=== PATIENT | male | born 1950 | race Caucasian/White ===

== ENCOUNTER → 2017-12-02 | Outpatient (CLI) | payer MEDICARE, OTHER ==
[2017-12-02 11:27] LABS: Blood Urea Nitrogen 13 mg/dL (9-20)
--- NOTE | 2017-12-02 14:00 | CT ---
EXAMINATION TYPE: CT chest w con DATE OF EXAM: 12/02/2017 COMPARISON: Unavailable HISTORY: Patient has no complaints at time of study. Follow up study to abnormal cxr. COPD. CT DLP: 175.2 mGycm Automated exposure control for dose reduction was used. CONTRAST: CT scan of the chest is performed with IV Contrast, patient injected with 100 mL of Omnipaque 300. FINDINGS: LUNGS: The lungs are grossly clear, there is no concerning parenchymal mass or nodule identified. E mphysematous changes are present there is a 3 mm subpleural nodule in the right upper lobe on axial i mage 29 anteriorly. In the upper lobes. There is no pleural effusion or pneumothorax seen. The trach eobronchial tree is patent. MEDIASTINUM: There are no greater than 1 cm hilar or mediastinal lymph nodes. Coronary artery calcifi cation is present. No pericardial effusion is seen. AORTA: No additional significant abnormality is seen. Circumaortic left renal vein is present. OTHER: Cystic focus present in the right lobe of the liver laterally at the level of the diaphragm m easures 17 mm, there are smaller cystic foci scattered within the right lobe. Cortical cyst noted in the upper pole the right kidney measures only approximately 1 cm IMPRESSION: Emphysema. Indeterminate right upper lobe lung nodule, follow-up in 6-12 months. Coronar y artery disease. Probable cysts within the liver and right kidney. Additional findings above
== END | disposition home or self-care (01) ==
LOC: RADCTMAIN 10:49
PROVIDERS: ATTEND Family Medicine
DX: J43.9 Emphysema, unspecified (principal); I25.10 Atherosclerotic heart disease of native coronary artery without angina pectoris; I21.02 ST elevation (STEMI) myocardial infarction involving left anterior descending coronary artery
CPT/HCPCS: 82565; 84520; 71260; Q9967

== ENCOUNTER → 2018-06-02 | Outpatient (CLI) | payer MEDICARE, OTHER ==
[2018-06-02 15:13] LABS: Blood Urea Nitrogen 17 mg/dL (9-20)
--- NOTE | 2018-06-02 16:21 | CT ---
EXAMINATION TYPE: CT chest w con DATE OF EXAM: 06/02/2018 COMPARISON: Previous study dated 12/02/2017. HISTORY: Solitary pulmonary nodule. CT DLP: 414 mGycm Automated exposure control for dose reduction was used. CONTRAST: CT scan of the chest is performed with IV Contrast, patient injected with 100 mL of Isovue M300. FINDINGS: There are emphysematous changes throughout the lungs. There is a 3 mm noncalcified nodule i n the anterior segment of the right upper lobe, best seen on image 25. This is unchanged from previou s. No definite new nodules are seen. There is no significant axillary, mediastinal or hilar adenopathy. There is no pleural or pericardial fluid. The heart is not enlarged. There are multiple simple appearing cysts throughout the liver, unchanged from previous. There is a s lightly irregular 1 cm cyst involving the upper pole of the right kidney. The remainder of the upper abdomen is unremarkable. There is hypertrophic spondylosis within the spine. IMPRESSION: 1. STABLE, SOLITARY PULMONARY NODULE IN THE RIGHT UPPER LOBE. 2. CYSTIC CHANGE IN THE LIVER AND RIGHT KIDNEY. 3. EMPHYSEMATOUS CHANGE. 4. DEGENERATIVE CHANGE WITHIN THE SPINE.
== END | disposition home or self-care (01) ==
LOC: RADCTMAIN 14:41
PROVIDERS: ATTEND Internal Medicine Critical Care Medicine
DX: J43.9 Emphysema, unspecified (principal); R91.1 Solitary pulmonary nodule
CPT/HCPCS: 82565; 84520; 71260; 36415; Q9967

== ENCOUNTER → 2019-02-23 | Outpatient (CLI) | payer MEDICARE ==
[2019-02-23 14:11] LABS: Blood Urea Nitrogen 15 mg/dL (9-20)
--- NOTE | 2019-02-23 16:19 | CT ---
EXAMINATION TYPE: CT chest w con DATE OF EXAM: 02/23/2019 COMPARISON: 06/02/2018 HISTORY: Solitary pulmonary nodule. CT DLP: 411 mGycm, Automated exposure control for dose reduction was used. CONTRAST: Performed injected with 100 mL of Isovue M300. TECHNIQUE: Axial images were obtained at 5 mm thick sections. Reconstructed images are reviewed on [employer] computer in the coronal plane. FINDINGS: Portion of the thyroid visualized is normal. No suspicious lung nodules or focal infiltrates are present. Some mild emphysematous changes present. There is a punctate calcific density measuring 0.2 cm in the right middle lobe. Series 4 image 29. Th is is likely a small granuloma. Lung windows otherwise appear clear. No enlarged mediastinal or hilar adenopathy is evident. The ascending aorta diameter at the level o f the main pulmonary artery is 3.4 cm. The main pulmonary artery diameter at the bifurcation is 2.0 cm. Mild coronary artery calcification is present. Limited CT sections are obtained through the upper abdomen. There are scattered small rounded hypoden sities within the liver likely on the basis of hepatic cysts. IMPRESSIONS: 1. Stable granuloma right middle lobe. Follow-up exam in 6 months is recommended. This has been prese nt since December 02, 2017. Confirmation of stability over the course of 2 years is recommended. 2. Hepatic cysts. 3. Mild emphysematous changes
== END | disposition home or self-care (01) ==
LOC: RADCTMAIN 13:34
PROVIDERS: ATTEND Internal Medicine Critical Care Medicine
DX: J84.10 Pulmonary fibrosis, unspecified (principal); J43.9 Emphysema, unspecified
CPT/HCPCS: 82565; 84520; 71260; 36415; Q9967

== ENCOUNTER → 2019-10-09 | Outpatient (CLI) | payer MEDICARE ==
[2019-10-09 11:47] LABS: African American GFR (CKD) >90 (>60 ml/min/1.73 sqM); Blood Urea Nitrogen 21 mg/dL (9-20)
--- NOTE | 2019-10-09 12:28 | CT ---
EXAMINATION TYPE: CT chest w con DATE OF EXAM: 10/09/2019 COMPARISON: 02/23/2019 HISTORY: Follow up nodule CT DLP: 181.5 mGycm Automated exposure control for dose reduction was used. CONTRAST: CT scan of the chest is performed with IV Contrast, patient injected with 100 mL of Isovue 300. FINDINGS: LUNGS: The lungs are grossly clear, there is no concerning parenchymal mass or nodule identified. Sta ble calcified granuloma right middle lobe. Mild upper lobe emphysematous changes noted. There is no p leural effusion or pneumothorax seen. The tracheobronchial tree is patent. MEDIASTINUM: There are no greater than 1 cm hilar or mediastinal lymph nodes. No pericardial effusi on is seen. Thoracic aorta is of normal caliber. The heart is not enlarged. UPPER ABDOMEN: Hepatic cysts are stable. OTHER: No additional significant abnormality is seen. IMPRESSION: 1 stable calcified granuloma right middle lobe. 2. Mild emphysematous changes. 3. Stable hepatic cysts.
== END | disposition home or self-care (01) ==
LOC: RADCTMAIN 11:03
PROVIDERS: ATTEND Internal Medicine Critical Care Medicine
DX: J43.9 Emphysema, unspecified (principal); J98.4 Other disorders of lung; R91.8 Other nonspecific abnormal finding of lung field
CPT/HCPCS: 82565; 84520; 71260; 36415; Q9967

== ENCOUNTER → 2021-07-10 | Outpatient (CLI) | payer MEDICARE ==
--- NOTE | 2021-07-10 12:23 | XR ---
EXAMINATION TYPE: XR foot complete RT DATE OF EXAM: 07/10/2021 CLINICAL HISTORY: Pain and bruising laterally after fall injury last week TECHNIQUE: Frontal, lateral, and oblique images of the right foot are obtained. COMPARISON: None FINDINGS: There is no acute fracture/dislocation evident in the right foot with particular attention to lateral aspect. Advanced narrowing with joint space sclerosis first metatarsophalangeal joint wit h some marginal spurring is noted. The Tobar's toe is present. Some flexion in the toes is seen. Th e overlying soft tissue appears unremarkable. IMPRESSION: There is no acute fracture or dislocation in the right foot.
== END | disposition home or self-care (01) ==
LOC: RADXRYALE 12:03
PROVIDERS: ATTEND Physician Assistant
DX: M79.671 Pain in right foot (principal)

== ENCOUNTER → 2022-02-12 | Outpatient (CLI) | payer MEDICARE ==
--- NOTE | 2022-02-13 04:47 | MR ---
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 There is spurring at the AC joint and subacromial impingement on the supraspinatus tendon and muscle. There is nodular decreased signal in the proximal humeral metaphysis consistent with an old bone inf arct. There is some mild thickening of the supraspinatus tendon. No evidence of full-thickness tear. No retraction. The infraspinatus tendon is intact. Subscapularis tendon is intact. There is fluid kai und the biceps tendon. Biceps tendon is intact. No evidence of a fracture. No evidence of a soft tiss ue mass. IMPRESSION: Spurring at the AC joint and mild subacromial impingement. Minimal thickening of the supraspinatus te ndon consistent with mild tendinitis. No full-thickness tear. Evidence of a 3 cm infarct in the proximal humeral metaphysis.
== END | disposition home or self-care (01) ==
LOC: RADMRIMAIN 07:10
PROVIDERS: ATTEND Physician Assistant
DX: M62.2 Nontraumatic ischemic infarction of muscle (principal); M77.8 Other enthesopathies, not elsewhere classified

== ENCOUNTER 2022-03-26 14:02 | Emergency (ER) | payer MEDICARE ==
[2022-03-26 14:08] VITALS: BP 151/72; PULSE 68; RESP 20; TEMP 98.4
[2022-03-26] MEDS ORDERED: BEBTELOVIMAB (EUA) 175 MG/2 ML VIAL IV ONE (18:15)
--- NOTE | 2022-03-26 18:44 | ED ---
URI HPI - General Chief Complaint: Upper Respiratory Infection Stated Complaint: Covid Time Seen by Provider: 03/26/22 14:15 Source: patient Mode of arrival: ambulatory Limitations: no limitations - History of Present Illness Initial Comments: 71-year-old male with past medical history of coronary artery disease presents to the emergency room with Covid symptoms. He 2 days ago he began having a scratchy throat, fever and mild nonproductive cough. did a test at home and it was positive for Covid. Patient presents today stating that most of his symptoms have resolved however he was pressured by his to come in. He denies any chest pain or shortness of breath. No current fevers. No nausea or vomiting. 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 ROS Other: All systems not noted in ROS Statement are negative. Past Medical History Past Medical History: Coronary Artery Disease (CAD) History of Any Multi-Drug Resistant Organisms: None Reported Additional Past Surgical History / Comment(s): Stents x3 Past Psychological History: No Psychological Hx Reported Smoking Status: Current every day smoker Past Alcohol Use History: Occasional Past Drug Use History: None Reported General Exam Limitations: no limitations General appearance: alert, in no apparent distress Head exam: Present: atraumatic, normocephalic, normal inspection Eye exam: Present: normal appearance, PERRL, EOMI. Absent: scleral icterus, conjunctival injection, periorbital swelling ENT exam: Present: normal exam, mucous membranes moist Neck exam: Present: normal inspection. Absent: tenderness, meningismus, ly mphadenopathy Respiratory exam: Present: normal lung sounds bilaterally. Absent: respiratory distress, wheezes, rales, rhonchi, stridor Cardiovascular Exam: Present: regular rate, normal rhythm, normal heart sounds. Absent: systolic murmur, diastolic murmur, rubs, gallop, clicks GI/Abdominal exam: Present: soft, normal bowel sounds. Absent: distended, tenderness, guarding, rebound, rigid Extremities exam: Present: normal inspection, full ROM, normal capillary refill. Absent: tenderness, pedal edema, joint swelling, calf tenderness Back exam: Present: normal inspection Neurological exam: Present: alert, oriented X3, CN II-XII intact Psychiatric exam: Present: normal affect, normal mood Skin exam: Present: warm, dry, intact, normal color. Absent: rash Course Vital Signs 03/26/22 14:05 Temperature 98.4 F Pulse Rate 68 Respiratory 20 Rate Blood Pressure 151/72 O2 Sat by Pulse 100 Oximetry Medical Decision Making - Medical Decision Making On arrival patient is placed into a hallway 10. Thorough exam is performed. Patient does qualify for antibodies and therefore he does receive infusion. Patient will be discharged home and instructed to follow-up with his primary care doctor. Return for any new or worsening symptoms. - Lab Data Lab Results 03/26/22 Range/Units 14:11 Coronavirus (PCR) Detected A (Not Detectd) Disposition Clinical Impression: COVID-19, Cough Disposition: HOME SELF-CARE Condition: Stable Instructions (If sedation given, give patient instructions): COVID-19 (Cor onavirus Disease 2019) (ED) Additional Instructions: Please follow up with your PCP in 2-4 days. Return to the ED for any new or worsening symptoms. you received antibody infusion today. Is patient prescribed a controlled substance at d/c from ED?: No Referrals: Sonny Lo DO [Primary Care Provider] - 1-2 days Time of Disposition: 18:44
== END 2022-03-26 19:24 | disposition home or self-care (01) ==
LOC: EC 14:02
DX: U07.1 COVID-19 (principal); F17.200 Nicotine dependence, unspecified, uncomplicated
CPT/HCPCS: 87635; 99284; Q0222

== ENCOUNTER 2023-07-05 04:08 | Observation (INO) | payer MEDICARE ==
[2023-07-05] MEDS ORDERED: MORPHINE SULFATE 4 MG/ML SYRINGE IV STA (04:46)
[2023-07-05 05:29] LABS: Basophils % (A) 1 %; Eosinophils # (A) 0.2 k/uL (0-0.7); Eosinophils % (A) 3 %; HCT 40.4 % (39.0-53.0); HGB 13.5 gm/dL (13.0-17.5); Lymphocytes # (A) 1.8 k/uL (1.0-4.8); Lymphocytes % (A) 28 %; MCH 32.4 pg (25.0-35.0); MCHC 33.4 g/dL (31.0-37.0); MCV 97.2 fL (80.0-100.0); Mean Platelet Volume 8.1; Monocytes # (A) 0.3 k/uL (0-1.0); Monocytes % (A) 5 %; Neutrophils % (A) 62 %; Platelet Count 192 k/uL (150-450); RBC 4.16 m/uL (4.30-5.90); WBC 6.4 k/uL (3.8-10.6)
[2023-07-05 05:56] LABS: ALT 18 U/L (4-49); AST 30 U/L (17-59); African American GFR (CKD) >90 (>60 ml/min/1.73 sqM); Albumin 4.6 g/dL (3.5-5.0); Alkaline Phosphatase 55 U/L (38-126); Anion Gap 11 mmol/L; Blood Urea Nitrogen 17 mg/dL (9-20); C Reactive Protein <0.5 mg/dL (<1.0); Calcium 9.2 mg/dL (8.4-10.2); Carbon Dioxide 18 mmol/L (22-30); Chloride 105 mmol/L (98-107); Glucose 91 mg/dL (74-99); Non-African American GFR(CKD) 84 (>60 ml/min/1.73 sqM); Potassium 4.6 mmol/L (3.5-5.1); Sodium 134 mmol/L (137-145); Total Bilirubin 0.7 mg/dL (0.2-1.3); Total Protein 7.3 g/dL (6.3-8.2)
--- NOTE | 2023-07-05 06:51 | CT ---
EXAMINATION TYPE: CT brain wo con CT DLP: 1144.4 mGycm, Automated exposure control for dose reduction was used. DATE OF EXAM: 07/05/2023 6:00 AM COMPARISON: None. CLINICAL INDICATION:Male, 72 years old with history of WHOL, TECHNIQUE: Brain: Multiple axial CT images of the brain were obtained without IV contrast. Coronal and sagittal reformats reviewed. FINDINGS: Brain: Extra-axial spaces: No abnormal extra-axial fluid collections. Ventricular system: Within normal limits Cerebral parenchyma: No acute intraparenchymal hemorrhage or mass effect. The renteria-white junction is well differentiated. Scattered hypoattenuating areas are seen within the white matter. Cerebellum: Unremarkable. Mass effect: No evidence of midline shift. Intracranial vasculature: Atherosclerotic calcifications of the intracranial vessels. Soft tissues: Normal. Calvarium/osseous structures: No depressed skull fracture. Paranasal sinuses and mastoid air cells: Mild scattered paranasal sinus disease. Visualized orbits: Hyperdense material identified within the posterior aspect of the left globe with a V-shaped hypodense region. IMPRESSION: 1. No acute intracranial process. 2. Hyperdense material within the posterior aspect of the left globe suspicious for retinal detachmen t/hemorrhage. Ophthalmology consult is recommended. 3. Nonspecific white matter changes, likely secondary to chronic small vessel ischemic disease.
[2023-07-05] MEDS ORDERED: methylPREDNISolone SOD SUCCI 125 MG/2 ML VIAL IV STA ×2 (07:09→09:11)
[2023-07-05] MEDS ORDERED: HYDROmorphone 1 MG/ML 1 ML SYRINGE IVP STA (07:09)
[2023-07-05 07:17] LABS: Erythrocyte Sedimentation Rate 6 mm/hr (0-15)
[2023-07-05] MEDS ORDERED: NALOXONE 0.4 MG/ML 1 ML VIAL IV PRN (07:29)
[2023-07-05] MEDS ORDERED: HYDROmorphone 1 MG/ML 1 ML SYRINGE IVP PRN (07:29)
--- NOTE | 2023-07-05 07:40 | ED ---
Headache HPI - General Chief Complaint: Headache Stated Complaint: Left eye Pain, Head pain Time Seen by Provider: 07/05/23 04:36 Mode of arrival: wheelchair Limitations: no limitations - History of Present Illness Initial Comments: This patient is a 72-year-old man who presents to have evaluation for severe left temporal headache. The patient states this is come on over the past few hours. He has noted that the pain is worse if he is upright, it is better if he puts his head down between his knees. Patient states that it also feels tender when he touches the left side of his head at the adventist. He has had this pain on number of times over the past few months but it has been mild. He has not noted fever or chills. No cough or congestion. No neck stiffness. No ne urologic symptoms. 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 MD Complaint: headache -: hour(s) Onset Description: sudden Location: left, temporal Severity: severe Quality: aching, throbbing Consistency: constant Improves With: other (head down position) Worsens With: other (Sitting upright) Context: occurred at rest Treatments Prior to Arrival: none - Related Data Home Medications Medication Instructions Recorded Confirmed Aspirin EC [Ecotrin Low Dose] 81 mg PO DAILY 07/05/23 07/05/23 Atorvastatin [Lipitor] 40 mg PO HS 07/05/23 07/05/23 Metoprolol Tartrate [Lopressor] 25 mg PO BID 07/05/23 07/05/23 Ubidecarenone [Co Q-10] 300 mg PO DAILY 07/05/23 07/05/23 lisinopriL [Zestril] 5 mg PO DAILY 07/05/23 07/05/23 Previous Rx's Medication Instructions Recorded HYDROcodone/APAP 5-325MG [[place] 1 tab PO Q4HR PRN 3 Days #18 tab 07/05/23 5-325] Allergies Allergy/AdvReac Type Severity Reaction Status Date / Time No Known Allergies Allergy Verified 07/05/23 09:06 Review of Systems ROS Statement: Those systems with pertinent positive or pertinent negative responses have been documented in the HPI. ROS Other: All systems not noted in ROS Statement are negative. Constitutional: Denies: fever, chills, weakness Eyes: Denies: vision change ENT: Denies: ear pain, throat pain, hearing loss, congestion Respiratory: Denies: cough, dyspnea Cardiovascular: Denies: chest pain, syncope Gastrointestinal: Denies: abdominal pain, nausea, vomiting Genitourinary: Denies: dysuria, hematuria Musculoskeletal: Denies: back pain Skin: Denies: rash Neurological: Reports: as per HPI, headache. Denies: weakness, numbness, paresthesias, confusion, vertigo Past Medical History Past Medical History: Coronary Artery Disease (CAD) History of Any Multi-Drug Resistant Organisms: None Reported Additional Past Surgical History / Comment(s): Stents x3 Past Psychological History: No Psychological Hx Reported Smoking Status: Current every day smoker Past Alcohol Use History: Daily Past Drug Use History: None Reported General Exam Limitations: no limitations General appearance: alert, in distress Head exam: Present: atraumatic, normocephalic Eye exam: Present: EOMI, conjunctival injection. Absent: PERRL, scleral icterus, nystagmus, periorbital swelling, periorbital tenderness ENT exam: Present: normal oropharynx, TM's normal bilaterally Neck exam: Present: normal inspection, full ROM. Absent: tenderness, meningismus Respiratory exam: Present: normal lung sounds bilaterally. Absent: respiratory distress, wheezes, rales, rhonchi, stridor Cardiovascular Exam: Present: regular rate, normal rhythm, normal heart sounds. Absent: systolic murmur, diastolic murmur, rubs, gallop Neurological exam: Present: alert, oriented X3, CN II-XII intact. Absent: motor sensory deficit Skin exam: Present: warm, dry, intact, normal color. Absent: rash Course Vital Signs 07/05/23 07/05/23 07/05/23 04:12 08:00 10:15 Temperature 97.7 F 97 F L Pulse Rate 72 72 67 Respiratory 18 16 16 Rate Blood Pressure 161/81 137/74 146/49 O2 Sat by Pulse 98 97 99 Oximetry 07/05/23 07/05/23 13:55 14:12 Temperature 98.1 F Pulse Rate 68 68 Respiratory 16 16 Rate Blood Pressure 138/64 136/76 O2 Sat by Pulse 98 97 Oximetry Medical Decision Making - Lab Data Result diagrams: 07/05/23 05:07 07/05/23 05:07 Lab Results 07/05/23 07/05/23 Range/Units 05:07 05:07 WBC 6.4 (3.8-10.6) k/uL RBC 4.16 L (4.30-5.90) m/uL Hgb 13.5 (13.0-17.5) gm/dL Hct 40.4 (39.0-53.0) % MCV 97.2 (80.0-100.0) fL MCH 32.4 (25.0-35.0) pg MCHC 33.4 (31.0-37.0) g/dL RDW 12.0 (11.5-15.5) % Plt Count 192 (150-450) k/uL MPV 8.1 Neutrophils % 62 % Lymphocytes % 28 % Monocytes % 5 % Eosinophils % 3 % Basophils % 1 % Neutrophils # 4.0 (1.3-7.7) k/uL Lymphocytes # 1.8 (1.0-4.8) k/uL Monocytes # 0.3 (0-1.0) k/uL Eosinophils # 0.2 (0-0.7) k/uL Basophils # 0.0 (0-0.2) k/uL ESR 6 (0-15) mm/hr Sodium 134 L (137-145) mmol/L Potassium 4.6 (3.5-5.1) mmol/L Chloride 105 (98-107) mmol/L Carbon Dioxide 18 L (22-30) mmol/L Anion Gap 11 mmol/L BUN 17 (9-20) mg/dL Creatinine 0.90 (0.66-1.25) mg/dL Est GFR (CKD-EPI)AfAm >90 (>60 ml/min/1.73 sqM) Est GFR (CKD-EPI)NonAf 84 (>60 ml/min/1.73 sqM) Glucose 91 (74-99) mg/dL Calcium 9.2 (8.4-10.2) mg/dL Total Bilirubin 0.7 (0.2-1.3) mg/dL AST 30 (17-59) U/L ALT 18 (4-49) U/L Alkaline Phosphatase 55 (38-126) U/L C-Reactive Protein <0.5 (<1.0) mg/dL Total Protein 7.3 (6.3-8.2) g/dL Albumin 4.6 (3.5-5.0) g/dL Disposition Clinical Impression: Headache Disposition: ADMITTED IP TO THIS HOSP Condition: Good
[2023-07-05] MEDS ORDERED: SODIUM CHLORIDE 0.9% 500 ML 500 ML IV STA (08:04)
[2023-07-05] MEDS ORDERED: SODIUM CHLORIDE 0.9% 1,000 ML IV STA (08:04)
[2023-07-05 08:11] VITALS: RESP 16
--- NOTE | 2023-07-05 09:47 | P.HPIM ---
History of Present Illness H&P Date: 07/05/23 Chief Complaint: temporal headache 72 year old man with history of retinal detachment of left eye, CAD, HTN, HLD presented for evaluation of headache. Pt says that 5 days ago he started to experience significant left temporal headache. Sharp in nature. Also feels it behind his left eye. He has had associated nausea. Palliative factor is placing his head between his knees. He describes some photophobia as well. Denies fevers, chills, vomiting, chest pain, palpitations, syncope, prescyncope, cough, dyspnea, abdominal pain, constipation, diarrhea, dysuria, dyschezia, numbness/weakness of extremities. In the ER, patient is afebrile, 137/74, HR 72, 97% on room air. CBC is unremarkable. BMP shows acidosis to 18, Na of 134. LFTs are unremarkable. ESR is 6, CRP is < 0.5. Brain CT shows hyperdense material within the posterior aspect of the left globe suspicious for retinal detachment/hemorrhage. Case was discussed with ER provider and decision was made to admit the patient to the hospital for suspicion of temporal arteritis. All Systems reviewed and pertinent positives and negatives noted in HPI, all other symptoms are negative Gen: in no apparent distress, resting comfortably in bed Eyes: PERRL, no scleral injection or icterus HENT: normocephalic, atraumatic, good hearing acuity, moist mucous membranes Neck: no tracheal deviation, full range of motion Resp: good air exchange, breathing comfortably with no accessory muscle use, no tactile fremitus CVS: good distal perfusion x 4, no pitting edema GI: soft, NTTP, ND, no hepatosplenomegaly : no suprapubic tenderness, no CVAT, leigh catheter not present MSK: no clubbing, no cyanosis, no noted contractures of extremities Skin: no noted rashes, petechiae; temperature of skin is appropriate Neuro: moving all extremities without signs of weakness, CN II-XII intact Psych: cooperative, euthymic mood, insight and judgment intact Labs and imaging as above Assessment: Left-sided temporal headache CAD Hypertension Hyperlipidemia History of retinal detachment of left eye Plan: Vital signs, labs, imaging reviewed as in the HPI Case discussed with the emergency room and decision was made to admit the patient to the hospital for suspicion of temporal arteritis Vascular surgery consult Neurology consult Start Solu-Medrol 1000 g daily IV MRI of the brain/orbit Pain control: Dilaudid 1 mg every 3 hours when necessary Bowel regimen: Senokot-S 1 tablet twice a day Patient is full code Past Medical History Past Medical History: Coronary Artery Disease (CAD) History of Any Multi-Drug Resistant Organisms: None Reported Additional Past Surgical History / Comment(s): Stents x3 Past Psychological History: No Psychological Hx Reported Smoking Status: Current every day smoker Past Alcohol Use History: Daily Past Drug Use History: None Reported Medications and Allergies Home Medications Medication Instructions Recorded Confirmed Type Aspirin EC [Ecotrin Low Dose] 81 mg PO DAILY 07/05/23 07/05/23 History Atorvastatin [Lipitor] 40 mg PO HS 07/05/23 07/05/23 History Metoprolol Tartrate [Lopressor] 25 mg PO BID 07/05/23 07/05/23 History Ubidecarenone [Co Q-10] 300 mg PO DAILY 07/05/23 07/05/23 History lisinopriL [Zestril] 5 mg PO DAILY 07/05/23 07/05/23 History Allergies Allergy/AdvReac Type Severity Reaction Status Date / Time No Known Allergies Allergy Verified 07/05/23 09:06 Physical Exam Osteopathic Statement: *. No significant issues noted on an osteopathic structural exam other than those noted in the History and Physical/Consult. Vitals: Vital Signs Temp Pulse Resp BP Pulse Ox 07/05/23 08:00 97 F L 72 16 137/74 97 07/05/23 04:12 97.7 F 72 18 161/81 98 Intake and Output 07/04/23 07/05/23 07/05/23 22:59 06:59 14:59 Other: Weight 68.039 kg Results CBC & Chem 7: 07/05/23 05:07 07/05/23 05:07 Labs: Abnormal Lab Results - Last 24 Hours (Table) 07/05/23 07/05/23 Range/Units 05:07 05:07 RBC 4.16 L (4.30-5.90) m/uL Sodium 134 L (137-145) mmol/L Carbon Dioxide 18 L (22-30) mmol/L
[2023-07-05] MEDS ORDERED: SODIUM CHLORIDE 0.9% IVPB ONE (10:00)
[2023-07-05] MEDS ORDERED: METHYLPREDNISOLONE SOD SUCCIN IVPB ONE (10:00)
--- NOTE | 2023-07-05 12:14 | P.GSCN ---
History of Present Illness Consult date: 07/05/23 Reason for Consult: Possible temporal arteritis Requesting physician: Devon David History of present illness: This is a 72-year-old male with a past medical history including coronary artery disease, retinal detachment of the left eye, daily smoker and history of daily alcohol use who presented to emergency department with complaints of left-sided temporal headache. States onset was acute started yesterday. Only relief he gets us if HIS head down. No visual changes. She does report nausea but no vomiting associated with it. Denies any history of previous migraines, does state he has a history of headaches in the same area however never this bad. He had a CT of the brain that reported no acute intracranial process. Hyperdense material within the posterior aspect of the left globe suspicious for retinal detachment/hemorrhage. Ophthalmology consult recommended. Nonspecific white matter changes, likely secondary to chronic small vessel ischemic disease. Vascular surgery was consulted for possible temporal arteritis. Patient had sed rate and CRP which were both normal. Neurology also on consult. Patient states her headache continues its a 10/10, nauseated but no vomiting. Describes headac he in the left frontal/temporal region. Denies any focal deficits. Review of Systems A 14 point review systems was completed all pertinent positives and negatives as stated in the HPI. Past Medical History Past Medical History: Coronary Artery Disease (CAD) History of Any Multi-Drug Resistant Organisms: None Reported Additional Past Surgical History / Comment(s): Stents x3 Past Psychological History: No Psychological Hx Reported Smoking Status: Current every day smoker Past Alcohol Use History: Daily Past Drug Use History: None Reported Medications and Allergies Home Medications Medication Instructions Recorded Confirmed Type Aspirin EC [Ecotrin Low Dose] 81 mg PO DAILY 07/05/23 07/05/23 History Atorvastatin [Lipitor] 40 mg PO HS 07/05/23 07/05/23 History Metoprolol Tartrate [Lopressor] 25 mg PO BID 07/05/23 07/05/23 History Ubidecarenone [Co Q-10] 300 mg PO DAILY 07/05/23 07/05/23 History lisinopriL [Zestril] 5 mg PO DAILY 07/05/23 07/05/23 History Allergies Allergy/AdvReac Type Severity Reaction Status Date / Time No Known Allergies Allergy Verified 07/05/23 09:06 Surgical - Exam Vital Signs Temp Pulse Resp BP Pulse Ox 97.7 F 72 18 161/81 98 07/05/23 04:12 07/05/23 04:12 07/05/23 04:12 07/05/23 04:12 07/05/23 04:12 General appearance: The patient is alert, oriented, appears in no acute distress. HET: Head is normocephalic and atraumatic. Nontender to palpation. Neck: Supple. Heart: Regular. Lungs: Equal expansion, normal respiratory effort. Abdomen: Soft, nondistended. Extremities: Normal skin color and turgor. Neurological: No focal deficits. Strength and sensation are grossly intact. Results - Labs 07/05/23 05:07 07/05/23 05:07 Abnormal Lab Results - Last 24 Hours (Table) 07/05/23 07/05/23 Range/Units 05:07 05:07 RBC 4.16 L (4.30-5.90) m/uL Sodium 134 L (137-145) mmol/L Carbon Dioxide 18 L (22-30) mmol/L Diabetes panel 07/05/23 Range/Units 05:07 Sodium 134 L (137-145) mmol/L Potassium 4.6 (3.5-5.1) mmol/L Chloride 105 (98-107) mmol/L Carbon Dioxide 18 L (22-30) mmol/L BUN 17 (9-20) mg/dL Creatinine 0.90 (0.66-1.25) mg/dL Glucose 91 (74-99) mg/dL Calcium 9.2 (8.4-10.2) mg/dL AST 30 (17-59) U/L ALT 18 (4-49) U/L Alkaline Phosphatase 55 (38-126) U/L Total Protein 7.3 (6.3-8.2) g/dL Albumin 4.6 (3.5-5.0) g/dL Calcium panel 07/05/23 Range/Units 05:07 Calcium 9.2 (8.4-10.2) mg/dL Albumin 4.6 (3.5-5.0) g/dL Pituitary panel 07/05/23 Range/Units 05:07 Sodium 134 L (137-145) mmol/L Potassium 4.6 (3.5-5.1) mmol/L Chloride 105 (98-107) mmol/L Carbon Dioxide 18 L (22-30) mmol/L BUN 17 (9-20) mg/dL Creatinine 0.90 (0.66-1.25) mg/dL Glucose 91 (74-99) mg/dL Calcium 9.2 (8.4-10.2) mg/dL Adrenal panel 07/05/23 Range/Units 05:07 Sodium 134 L (137-145) mmol/L Potassium 4.6 (3.5-5.1) mmol/L Chloride 105 (98-107) mmol/L Carbon Dioxide 18 L (22-30) mmol/L BUN 17 (9-20) mg/dL Creatinine 0.90 (0.66-1.25) mg/dL Glucose 91 (74-99) mg/dL Calcium 9.2 (8.4-10.2) mg/dL Total Bilirubin 0.7 (0.2-1.3) mg/dL AST 30 (17-59) U/L ALT 18 (4-49) U/L Alkaline Phosphatase 55 (38-126) U/L Total Protein 7.3 (6.3-8.2) g/dL Albumin 4.6 (3.5-5.0) g/dL Assessment and Plan Assessment: 1. Headache Plan: Patient with normal sed rate and CRP. No plans at this time for any surgical intervention. Await recommendations from neurology. Thank you for this consultation, we will continue to follow. The impression and plan of care has been dictated as directed. Dr. Melendez I performed a history and examination of this patient, discussed the same with the dictator. I agree with the dictator's note ,documented as a scribe. Any additional findings or plans will be noted.
--- NOTE | 2023-07-05 13:38 | P.CNNES ---
History of Present Illness Consult date: 07/05/23 Requesting physician: Devon Daivd Reason for Consult: possible temporal arteritis History of Present Illness: This is a 72-year-old gentleman with history of left eye issues and he had surgery in 2009 but has been legally blind since 2010 presents to our facility because of severe headache kind the left eye for the past 4 days. Some of the history was limited because of the patient's severe pain while getting the h istory from him. Patient states that for the past 4 days has been having severe headache left retro-orbital and states it's intermittent and it's 10 over 10 and but could not describe the headache for me but he's been having nauseous. He states that he has been having this issue on and off for years but got worse in the last 4 days. He denies any the head trauma, any trauma to the eye. He feel s the headache is improved with the putting his head down between his knees. Denies any new visual disturbance over the right eye, any jaw pain upon swallowing, any the swallowing difficulty. He denies of any focal weakness or numbness. He feels he is having generalized weakness. Patient denies of any recent fevers at. He states he does drink a significant alcohol on a daily basis and last drink was yesterday. Initially in the ED there is a concern of left temporal arteritis. Some of the workup during his hospital visit consisted of: Temperature is 97.7 ESR 6. White blood cells 6.4 thousand. Chemistry panel is covered axis XVIII and the sodium is 134 otherwise rest is unremarkable. CRP is less than 0.5 CT of the head is reported as no acute intracranial process. Hyperdense mate rial within the posterior aspect of the left globe suspicious for retinal detachment/hemorrhage. Ophthalmology consult is recommended. Nonspecific white matter changes, likely secondary due to chronic small vessel ischemic disease. I personally reviewed the CT am concerned that the patient possibly has hemorrhage in the retinal over the left eye Review of Systems Review of systems Limited but the pertinent positive and negative as per HPI Past Medical History Past Medical History: Coronary Artery Disease (CAD) History of Any Multi-Drug Resistant Organisms: None Reported Additional Past Surgical History / Comment(s): Stents x3 Past Psychological History: No Psychological Hx Reported Smoking Status: Current every day smoker Past Alcohol Use History: Daily Past Drug Use History: None Reported Medications and Allergies Home Medications Medication Instructions Recorded Confirmed Type Aspirin EC [Ecotrin Low Dose] 81 mg PO DAILY 07/05/23 07/05/23 History Atorvastatin [Lipitor] 40 mg PO HS 07/05/23 07/05/23 History HYDROcodone/APAP 5-325MG [Dyess 1 tab PO Q4HR PRN 3 Days #18 tab 07/05/23 Rx 5-325] Metoprolol Tartrate [Lopressor] 25 mg PO BID 07/05/23 07/05/23 History Ubidecarenone [Co Q-10] 300 mg PO DAILY 07/05/23 07/05/23 History lisinopriL [Zestril] 5 mg PO DAILY 07/05/23 07/05/23 History Allergies Allergy/AdvReac Type Severity Reaction Status Date / Time No Known Allergies Allergy Verified 07/05/23 09:06 Physical Examination - Vital Signs Vital Signs: Vital Signs Temp Pulse Resp BP Pulse Ox 07/05/23 10:15 67 16 146/49 99 07/05/23 08:00 97 F L 72 16 137/74 97 07/05/23 04:12 97.7 F 72 18 161/81 98 Intake and Output 07/04/23 07/05/23 07/05/23 22:59 06:59 14:59 Other: Weight 68.039 kg GENERAL: The patient is sitting in a chair and is in severe pain. NEUROLOGICAL: Limited because of his cooperation and in in severe pain. Higher mental function: The patient is awake, alert, oriented to self, place and time. Patient is following simple commands. No aphasia and no neglect. Cranial nerves: The right pupil is 3mm and reactive to light. Left eye is opacified and is erythematous. Visual field are full to confrontation. Left is legally blind (old). EOM is hard to assess because of his cooperation over the right eye. Facial sensation is normal to touch throughout. The facial strength is normal throughout. Tongue is midline and moved [id number] without any difficulty. No dysarthria is noted. Shoulder shrug is normal bilaterally. Motor: The strength is 5 over 5 throughout. Normal tone and bulk. Cerebellum: Normal finger to nose bilaterally. But has underlying tremor with rest and movement. Sensation: Sensation is normal to touch throughout. Reflexes (right/left): Unable to assess because of cooperation. Results - Laboratory Findings CBC and BMP: 07/05/23 05:07 07/05/23 05:07 Abnormal Lab Findings: Abnormal Labs 07/05/23 07/05/23 05:07 05:07 RBC 4.16 L Sodium 134 L Carbon Dioxide 18 L Assessment and Plan Assessment: As is a 72-year-old gentleman with history of left eye issues and had surgery and is legally blind since 2009, coronary artery disease status post stent, significant alcohol use who comes in because of significant left retro-orbital pain for the last 4 days but states he's been having for years intermittently but got worse over the last 4 years with nausea. ESR and CRP is normal. Denies of any the jaw pain or any new visual disturbance. CT of the head there is a concern of left retinal detachment versus hemorrhage Left-sided cephalgia due to concern of left retro-orbital bleeding. Unlikely temporal arteritis the ESR CRP is normal and patient denies of any new visual disturbance or jaw pain Legally blind over the left eye since 2009 Significant alcohol use Plan: I spoke with the primary team and I notified them that I recommend a stat ophthalmology consultation. MRI of the brain and orbit is ordered by the primary team and pending I ordered TSH level Vascular surgery team is consulted for possible temporal arteritis again I highly doubt it. Started the patient on thiamine 100mg daily. I recommend CIWA protocol since he has significant alcohol use and having tremor possibly concern for withdrawal. Will defer management to primary team. Will defer rest of management to primary team. The plan is discussed with patient, primary attending and his nurse. Thank you for the consultation. Time with Patient: Greater than 30
[2023-07-05] MEDS ORDERED: THIAMINE 100 MG TAB PO SCH (13:45)
[2023-07-05 13:56] VITALS: PULSE 68
[2023-07-05 14:13] VITALS: BP 136/76; TEMP 98.1
--- NOTE | 2023-07-05 14:29 | P.DS ---
Providers Date of admission: 07/05/23 07:30 Expected date of discharge: 07/05/23 Attending physician: Danny Covington MD Consults: 07/05/23 07:29 Consult Physician Routine Consulting Provider: Mervin Ledezma Consult Reason/Comments: acute headache Do you want consulting provider notified?: Yes Consult Physician Routine Consulting Provider: Lorrie Melendez Consult Reason/Comments: possible temporal arteritis Do you want consulting provider notified?: Yes 07/05/23 13:17 Consult Physician Stat Consulting Provider: Vicky Tejada Consult Reason/Comments: retinal hemorrhage Do you want consulting provider notified?: Yes Primary care physician: [facility] Course: Assessment: Left-sided temporal headache CAD Hypertension Hyperlipidemia History of retinal detachment of left eye Hospital Course: 72 year old man with history of retinal detachment of left eye, CAD, HTN, HLD presented for evaluation of headache. In the ER, patient is afebrile, 137/74, H R 72, 97% on room air. CBC is unremarkable. BMP shows acidosis to 18, Na of 134. LFTs are unremarkable. ESR is 6, CRP is < 0.5. Brain CT shows hyperdense material within the posterior aspect of the left globe suspicious for retinal detachment/hemorrhage. Case was discussed with ER provider and decision was made to admit the patient to the hospital for suspicion of temporal arteritis. Patient was treated with IV pain medication as well as given 1000 mg of sodium Medrol. The case was subsequently discussed with neurology and ophthalmology. Ophthalmology recommended that the patient be discharged and sent immediately to the clinic for evaluation. I gave the patient a referral to [facility], as well as a prescription for pain medication to his pharmacy. Patient will be seen in the clinic today for evaluation of eye pain. See same-day history and physical for physical exam Patient Condition at Discharge: Good Plan - Discharge Summary New Discharge Prescriptions: New HYDROcodone/APAP 5-325MG [Dickinson 5-325] 1 tab PO Q4HR PRN 3 Days #18 tab PRN Reason: Pain Continue Metoprolol Tartrate [Lopressor] 25 mg PO BID Atorvastatin [Lipitor] 40 mg PO HS Ubidecarenone [Co Q-10] 300 mg PO DAILY lisinopriL [Zestril] 5 mg PO DAILY Aspirin EC [Ecotrin Low Dose] 81 mg PO DAILY Discharge Medication List Aspirin EC [Ecotrin Low Dose] 81 mg PO DAILY 07/05/23 [History] Atorvastatin [Lipitor] 40 mg PO HS 07/05/23 [History] HYDROcodone/APAP 5-325MG [Dickinson 5-325] 1 tab PO Q4HR PRN 3 Days #18 tab 07/05/23 [Rx] Metoprolol Tartrate [Lopressor] 25 mg PO BID 07/05/23 [History] Ubidecarenone [Co Q-10] 300 mg PO DAILY 07/05/23 [History] lisinopriL [Zestril] 5 mg PO DAILY 07/05/23 [History] Follow up Appointment(s)/Referral(s): Vicky Tejada MD [STAFF PHYSICIAN] - 1-2 Days (Go immediately to [facility]) Sonny Lo DO [Primary Care Provider] - 1-2 days Patient Instructions/Handouts: Acute Headache (ED) Discharge Disposition: HOME SELF-CARE
[2023-07-05] MEDS ORDERED: METOPROLOL TARTRATE 25 MG TAB PO SCH (21:00)
[2023-07-05] MEDS ORDERED: SENNOSIDES-DOCUSATE SODIUM 1 EACH TAB PO SCH (21:00)
[2023-07-05] MEDS ORDERED: ATORVASTATIN 40 MG TAB PO SCH (21:00)
[2023-07-06] MEDS ORDERED: ASPIRIN 81 MG PO SCH (09:00)
[2023-07-06] MEDS ORDERED: methylPREDNISolone SOD SUCCIN 1,000 MG in SODIUM CHLORIDE 0.9% 250 ML IVPB SCH (09:00)
[2023-07-06] MEDS ORDERED: lisinopriL 5 MG TAB PO SCH (09:00)
[2023-07-06] MEDS ORDERED: NON FORMULARY DRUG (Ubidecarenone [Co Q-10] 300 MG Capsule) PO SCH (09:00)
[2023-07-06] MEDS ORDERED: methylPREDNISolone SOD SUCCI 125 MG/2 ML VIAL IV SCH (09:00)
== END 2023-07-05 19:16 | disposition home or self-care (01) ==
LOC: EC 04:08 → 5NMEDONC 07:30 → INTOOBSV 07:30 → UNDODISIN 19:16
PROVIDERS: ADMIT Internal Medicine; ATTEND Internal Medicine
DX: R51.9 Headache, unspecified (principal); R11.0 Nausea; I25.10 Atherosclerotic heart disease of native coronary artery without angina pectoris; I10 Essential (primary) hypertension; E78.5 Hyperlipidemia, unspecified; H33.22 Serous retinal detachment, left eye; E87.20 Acidosis, unspecified; F17.200 Nicotine dependence, unspecified, uncomplicated; Z95.5 Presence of coronary angioplasty implant and graft; Z79.899 Other long term (current) drug therapy; Z79.82 Long term (current) use of aspirin; H54.8 Legal blindness, as defined in USA
CPT/HCPCS: 96376; 96361; 96365; 96375; 99285; 36415; 80053; 85652; 85025; 86140; 70450; G0378; J2270; J2930 ×2; J1170

== ENCOUNTER → 2024-02-28 | Outpatient (CLI) | payer MEDICARE, OTHER ==
--- NOTE | 2024-02-28 11:22 | XR ---
EXAMINATION TYPE: XR lumbosacral spine min 4V DATE OF EXAM: 02/28/2024 10:51 AM CLINICAL INDICATION:Male, 73 years old with history of [id number] DDD COMPARISON: None TECHNIQUE: XR lumbosacral spine min 4V - Frontal, lateral , bilateral oblique and coned in L5-S1 late ral views of the spine. FINDINGS: No evidence of any acute osseous pathology. No evidence of loss of vertebral body height i s seen. There is normal alignment of the lumbar vertebral bodies. Mild scattered disc space narrowing . Multilevel marginal osteophyte formation throughout the visualized spine. There is facet joint arth ropathy throughout the spine. Scattered at least mild neural foraminal stenosis. This course of the a rterial vascular. IMPRESSION: 1. No acute fracture. 2. Moderate multilevel disc degeneration.
== END | disposition home or self-care (01) ==
LOC: RADXRYALE 10:34
PROVIDERS: ATTEND Physician Assistant
DX: M51.37 Other intervertebral disc degeneration, lumbosacral region (principal)
CPT/HCPCS: 72110

== ENCOUNTER → 2024-12-05 | Outpatient (CLI) | payer MEDICARE, OTHER ==
--- NOTE | 2024-12-05 11:46 | MR ---
EXAMINATION TYPE: MR lumbar spine wo con DATE OF EXAM: 12/05/2024 11:02 AM COMPARISON: 02/28/2024. CLINICAL INDICATION: Male, 74 years old with history of M51.362 OTH INTVRT DISC DEGEN, LUM RGN W DISC OG BC; PHH, Numbness and pain in hips/legs/feet. TECHNIQUE: Multi planar, multi sequence imaging was performed utilizing: T1-weighted, T2-weighted, a nd turbo inversion recovery imaging of the lumbar spine. IV Contrast: mL (None, if empty) FINDINGS: Alignment: The lumbar vertebral bodies have preserved heights with grade 1 anterolisthesis of L5 on S 1. Cord: The conus medullaris and the distal spinal cord appear unremarkable with regards to their signa l intensity and morphology. Bones/Discs: Mild to moderate degeneration changes throughout the spine with osteophyte formation and facet joint arthropathy. Multilevel disc desiccation is present. Reactive adjoining endplate edema a t L3-L4 and L5-S1. Bilateral pars interarticularis defects at L5. T12-L1: No evidence of significant spinal canal stenosis or neural foraminal stenosis. L1-L2: No evidence of significant spinal canal stenosis. Facet joint arthropathy mild to moderate tomás ateral neural foraminal stenosis. L2-L3: Disc bulge and facet joint arthropathy result in mild to moderate spinal canal and moderate bi lateral neural foraminal stenosis. L3-L4: Disc bulge and facet joint arthropathy result in mild to moderate spinal canal and moderate to severe and neural foraminal stenosis. L4-L5: Disc bulge and facet joint arthropathy result in mild spinal canal and moderate to severe and neural foraminal stenosis. L5-S1: The disc has a rounded posterior morphology without significant spinal canal stenosis. Facet j oint arthropathy with mild bilateral neural foraminal stenosis. No significant spinal canal or neural foraminal stenosis in the remainder of the visualized levels. Other findings: Right renal high T2 simple appearing cyst. IMPRESSION: 1. No definitive evidence of disc herniation or significant spinal canal stenosis. 2. Multilevel disc degeneration with associated osteoarthritic changes. Neural foraminal stenosis wo rse at L2-3 through L5-S1 levels with moderate to severe bilateral. 3. Grade 1 anterolisthesis of L5 on S1. Bilateral spondylolysis [facility], , 12/05/2024 11:44 AM
== END | disposition home or self-care (01) ==
LOC: RADMRIMAIN 10:14
PROVIDERS: ATTEND Family Medicine
DX: M48.061 Spinal stenosis, lumbar region without neurogenic claudication (principal); M51.362 Other intervertebral disc degeneration, lumbar region with discogenic back pain and lower extremity pain; M43.17 Spondylolisthesis, lumbosacral region
CPT/HCPCS: 72148